=== PATIENT | male | born 1995 | race Caucasian/White ===

== ENCOUNTER 2017-11-03 23:47 | Emergency (ER) | payer MEDICAID ==
[~2017-11-03] VITALS: Ht 188 cm; Wt 71.7 kg
[2017-11-04] VITALS: BP_SYST 126
[2017-11-04 00:31] LABS: BILIRUBIN,URINE NEGATIVE (NEGATIVE); BLOOD, URINE NEGATIVE (NEGATIVE); CLARITY/URINE CLEAR (CLEAR); COLOR,URINE YELLOW (YELLOW); GLUCOSE,URINE NEGATIVE (NEGATIVE); KETONES,URINE NEGATIVE (NEGATIVE); LEUKOCYTE ESTERASE ,URINE 1+ (NEGATIVE); NITRITE, URINE NEGATIVE (NEGATIVE); PROTEIN URINE TRACE (NEGATIVE); UROBILINOGEN,URINE 0.2 (0.2-1.0)
[2017-11-04 00:58] LABS: BACTERIA,URINE MODERATE /HPF (None Seen); MUCUS,URINE 1+ /LPF (None Seen); RBC,URINE 0-3 /HPF (0-3)
[2017-11-04 01:34] VITALS: BP_SYST 118
== END 2017-11-04 01:34 | disposition home or self-care (01) ==
LOC: SED 23:47
DX: R10.32 Left lower quadrant pain (principal); R03.0 Elevated blood-pressure reading, without diagnosis of hypertension
CPT/HCPCS: 71045; 74021; 81000-TC; 87086; 99285

== ENCOUNTER 2019-02-10 19:20 | Emergency (ER) | payer MEDICAID ==
[~2019-02-10] VITALS: Ht 188 cm; Wt 68.0 kg
[2019-02-10 19:31] VITALS: BP_SYST 108
[2019-02-10 23:18] LABS: BASOPHILS # (AUTO) 0.1 K/uL (0.0-0.2); EOSINOPHILS # (AUTO) 0.1 K/uL (0.0-0.4); EOSINOPHILS % (AUTO) 1.4 % (0.0-4.0); HEMATOCRIT 43.5 % (36-54); HEMOGLOBIN 14.6 g/dL (14.0-18.0); LYMPHOCYTES # (AUTO) 1.5 K/uL (1.0-5.5); LYMPHOCYTES % (AUTO) 27.4 % (20.5-51.5); MEAN CORPUSCULAR HEMOGLOBIN 30 pg (27-31); MEAN CORPUSCULAR HGB CONC 34 % (32-36); MEAN CORPUSCULAR VOLUME 88 fL (79.0-98.0); MONOCYTES # (AUTO) 0.4 K/uL (0.0-1.0); MONOCYTES % (AUTO) 8.3 % (1.7-9.3); NEUTROPHILS # (AUTO) 3.3 K/uL (1.8-7.7); NEUTROPHILS % (AUTO) 61.9 % (40.0-70.0); PLATELET COUNT (AUTO) 174 K/uL (130-430); RED BLOOD CELL COUNT(AUTO) 4.94 MIL/uL (4.2-6.2); RED CELL DISTRIBUTION WIDTH 12.2 % (9.0-15.0); WHITE BLOOD COUNT (AUTO) 5.4 K/uL (4.8-10.8)
[2019-02-10 23:30] LABS: CALCIUM 9.4 mg/dL (8.4-11.0); CREATININE 0.96 mg/dL (0.55-1.30); POTASSIUM 4.2 mmol/L (3.5-5.1)
[2019-02-10 23:36] LABS: ALBUMIN 4.5 g/dL (3.4-4.8); TOTAL BILIRUBIN 0.6 mg/dL (0.0-1.0)
[2019-02-10 23:48] LABS: INR 1.1 (0.80-1.20)
[2019-02-11 00:58] VITALS: BP_SYST 108
== END 2019-02-11 00:59 | disposition home or self-care (01) ==
LOC: SED 19:20
DX: K62.5 Hemorrhage of anus and rectum (principal)
CPT/HCPCS: 36415; 80053; 82272; 85025; 85610-TC; 99283

== ENCOUNTER 2019-10-29 21:43 | Emergency (ER) | payer MEDICAID ==
[~2019-10-29] VITALS: Ht 188 cm; Wt 72.6 kg
[2019-10-29 22:00] VITALS: BP_SYST 140
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
--- NOTE | 2019-10-29 22:00 | NUR ---
pt ambulatory to bed 1 for evaluation
--- NOTE | 2019-10-29 22:20 | NUR ---
ER Dr. KHAN at bedside examining patient.
[2019-10-29] MEDS ORDERED: KETOROLAC TROMETHAMINE 60 MG/2 ML VIAL IM ONE (22:30)
--- NOTE | 2019-10-29 22:30 | NUR ---
XRAYS COMPLETED AT BEDSIDE-PORTABLE. PT TOLERATED WELL.
--- NOTE | 2019-10-29 23:30 | NUR ---
PT RESTING QUIETLY AND AWAITING DISPOSITION.
--- NOTE | 2019-10-29 23:45 | NUR ---
DR. KHAN AT BEDSIDE TO RE-EVALUATE PT.
[2019-10-30 00:15] VITALS: BP_SYST 140
--- NOTE | 2019-10-30 00:15 | NUR ---
Patient given written and verbal discharge instructions and verbalizes understanding. DR. ERIN YEH MD discussed with patient the results and treatment provided. Patient in stable condition. ID arm band removed. Rx of given. Patient educated on pain management and to follow up with PMD. Pain Scale 2/10. Opportunity for questions provided and answered. Medication side effect fact sheet provided.
== END 2019-10-30 00:15 | disposition home or self-care (01) ==
LOC: SED 21:43
DX: S63.681A Other sprain of right thumb, initial encounter (principal); X58.XXXA Exposure to other specified factors, initial encounter; Y93.71 Activity, boxing; Y92.89 Other specified places as the place of occurrence of the external cause; Y99.8 Other external cause status
CPT/HCPCS: 29125; 73130; 96372; 99283; J1885

== ENCOUNTER 2020-06-06 00:29 | Emergency (ER) | payer MEDICAID ==
[~2020-06-06] VITALS: Ht 188 cm; Wt 72.6 kg
[2020-06-06 00:49] VITALS: BP_SYST 122
[2020-06-06 02:09] LABS: INFLUENZA A&B ANTIGEN SCREEN NEGATIVE FOR A & B (NEGATIVE); STREPTOCOCCUS A SCREEN (RAPID) NEGATIVE (NEGATIVE)
[2020-06-06] MEDS: DEXAMETHASONE SOD PHOSPHATE 10 MG/ML VIAL IM ONE (02:09)
[2020-06-06] MEDS: cefTRIAXone 1 GM VIAL IM ONE (02:10)
[2020-06-06] MEDS: KETOROLAC TROMETHAMINE 30 MG VIAL IM ONE (02:10)
[2020-06-06 02:30] VITALS: BP_SYST 122
== END 2020-06-06 02:30 | disposition home or self-care (01) ==
LOC: SED 00:29
DX: J02.9 Acute pharyngitis, unspecified (principal); R00.0 Tachycardia, unspecified; Z20.828 Contact with and (suspected) exposure to other viral communicable diseases
CPT/HCPCS: 36415; 86308; 86403; 86710; 87081; 87426; 93005; 96372; 99284; C9803; J0696; J1100; J1885; U0003